=== PATIENT | male | born 1985 | race American Indian/Alaskan Native ===

== ENCOUNTER 2017-05-15 18:49 | Emergency (ER) | payer OTHER ==
[2017-05-15] MEDS ORDERED: NORCO 5/325 PO ONE (19:01)
[2017-05-15] MEDS ORDERED: BOOSTRIX IM ONE (19:02)
[2017-05-15 19:05] VITALS: BP 126/94
[2017-05-15] MEDS ORDERED: MOTRIN ONE (19:21)
[2017-05-15] MEDS ORDERED: MOTRIN PO ONE (19:24)
--- NOTE | 2017-05-15 19:36 | XRay Report ---
FINAL REPORT EXAM: XR FINGER(S) 2+V RT HISTORY: distal index finger fracture TECHNIQUE: AP, lateral, and oblique views of the right 4th finger PRIORS: None. FINDINGS: There is an acute fracture involving the distal tuft of the 4th finger. Overlying bandaging somewhat obscures visualization of soft tissues. There is no evidence for dislocation. No soft tissue swelling or radiopaque foreign bodies are seen. Bony mineralization is normal and joint spaces are maintained. IMPRESSION: Acute fracture involving the distal tuft of the 4th finger.
--- NOTE | 2017-05-15 20:34 | Emergency Department Report ---
ED Upper Extremity Inj HPI - General Chief Complaint: Extremity Injury, Upper Stated Complaint: FINGER LAC Time Seen by Provider: 05/15/17 19:28 Source: patient Mode of arrival: Ambulatory Limitations: No Limitations - History of Present Illness Initial Comments: This is a 31-year-old male nontoxic, well nourished in appearance, no acute signs of distress that presents to the ED complaining of right fourth finger pain and laceration. Patient stated he was moving a heavy object at work and landed on his right index and fourth finger that occurred around 6 PM today. Patient denies any numbness, tingling, decreased range of motion, fever, chills , shortness of breath, chest pain, nausea or vomiting. Patient discussed pain as throbbing with level of 8 out of 10. Patient denies having tetanus update. Denies any drug allergies. Past medical history MS and hypersomnia. Patient is currently occupied with coworker. Coworker stated he will junk the patient home at the time of discharge. MD Complaint: Injury to:: finger (right fourth) -: Gradual, This evening Other Extremity Injury: Fingers: Right Other Injuries: none Handedness: right Place: work Severity scale (0 -10): 8 Improves With: none Worsens With: none Context: injury Associated Symptoms: denies other symptoms. denies: weakness, numbness, neck pain, suspects foreign body, nausea/vomiting, heard/felt popping sensat - Related Data Previous Rx's Medication Instructions Recorded Last Taken Type Cephalexin [Keflex] 500 mg PO Q8HR 5 Days 05/15/17 Unknown Rx HYDROcodone/APAP 7.5-325 [[place] 1 each PO Q8HR PRN #12 tablet 05/15/17 Unknown Rx 7.5/325] Ibuprofen [Motrin 600 MG tab] 600 mg PO Q8H PRN #20 tablet 05/15/17 Unknown Rx Allergies Allergy/AdvReac Type Severity Reaction Status Date / Time No Known Allergies Allergy Unverified 05/15/17 19:00 ED Review of Systems ROS: Stated complaint: FINGER LAC Other details as noted in HPI Constitutional: denies: chills, fever Eyes: denies: eye pain, eye discharge, vision change ENT: denies: ear pain, throat pain Respiratory: denies: cough, shortness of breath, wheezing Cardiovascular: denies: chest pain, palpitations Endocrine: no symptoms reported Gastrointestinal: denies: abdominal pain, nausea, diarrhea Genitourinary: denies: urgency, dysuria Musculoskeletal: denies: back pain, joint swelling, arthralgia Skin: denies: rash, lesions Neurological: denies: headache, weakness, paresthesias Psychiatric: denies: anxiety, depression Hematological/Lymphatic: denies: easy bleeding, easy bruising ED Past Medical Hx - Past Medical History Previous Medical History?: Yes Additional medical history: MS, Hypersomnia - Surgical History Past Surgical History?: Yes Hx Cholecystectomy: Yes - Social History Smoking Status: Never Smoker Substance Use Type: Non Opiate Pain, Prescribed - Medications Home Medications: Home Medications Medication Instructions Recorded Confirmed Last Taken Type Cephalexin [Keflex] 500 mg PO Q8HR 5 Days 05/15/17 Unknown Rx HYDROcodone/APAP 7.5-325 [[place] 1 each PO Q8HR PRN #12 tablet 05/15/17 Unknown Rx 7.5/325] Ibuprofen [Motrin 600 MG tab] 600 mg PO Q8H PRN #20 tablet 05/15/17 Unknown Rx ED Physical Exam - General Limitations: No Limitations General appearance: alert, in no apparent distress - Head Head exam: Present: atraumatic, normocephalic, normal inspection - Eye Eye exam: Present: normal appearance, PERRL, EOMI. Absent: scleral icterus, conjunctival injection, nystagmus, periorbital swelling, periorbital tenderness Pupils: Present: normal accommodation - ENT ENT exam: Present: normal exam, normal orophraynx, mucous membranes moist, TM's normal bilaterally, normal external ear exam - Neck Neck exam: Present: normal inspection, full ROM. Absent: tenderness, meningismus, lymphadenopathy, thyromegaly - Respiratory Respiratory exam: Present: normal lung sounds bilaterally. Absent: respiratory distress, wheezes, rales, rhonchi, stridor, chest wall tenderness, accessory muscle use, decreased breath sounds, prolonged expiratory - Cardiovascular Cardiovascular Exam: Present: regular rate, normal rhythm, normal heart sounds. Absent: bradycardia, tachycardia, irregular rhythm, systolic murmur, diastolic murmur, rubs, gallop - GI/Abdominal GI/Abdominal exam: Present: soft, normal bowel sounds. Absent: distended, tenderness, guarding, rebound, rigid, diminished bowel sounds - Rectal Rectal exam: Present: deferred - Extremities Exam Extremities exam: Present: normal inspection, full ROM, normal capillary refill. Absent: tenderness, pedal edema, joint swelling, calf tenderness - Expanded Upper Extremity Exam Right General: Present: normal inspection, laceration Shoulder Exam: Present: normal inspection, full ROM. Absent: tenderness, swelling, abrasion, laceration, ecchymosis, deformity, crepidus, dislocation, erythema, tenderness over AC joint Upper Arm exam: Present: normal inspection, full ROM. Absent: tenderness, swelling, abrasion, laceration, ecchymosis, deformity, crepidus, dislocation, erythema Elbow exam: Present: normal inspection, full ROM. Absent: tenderness, swelling , abrasion, laceration, ecchymosis, deformity, crepidus, dislocation, erythema, effusion, pain w/ pronation/supination, tenderness over radial head Forearm Wrist exam: Present: normal inspection, full ROM. Absent: tenderness, swelling, abrasion, laceration, ecchymosis, deformity, crepidus, dislocation, erythema, tenderness over anatomical snuff box, pain with axial thumb loading Hand Wrist exam: Present: normal inspection, full ROM, tenderness (fourth finger ), laceration (1 cm laceration to right distal fourth finger), other (Vascular stable fourth finger with normal ROM and cap refill.). Absent: swelling, abrasion, ecchymosis, deformity, crepidus, dislocation, erythema, amputation, nail avulsion, subungual hematoma Hand L/R Front: 1 - Positive: laceration Neuro motor exam: Present: wrist extension intact, thumb opposition intact, thumb IP flexion intact, thumb adduction intact, fingers 2-5 abduction intact Neurosensory exam: Present: 2-point discrimination, radial nerve intact, ulnar nerve intact, median nerve intact Vascular: Present: vascular compromise, normal capillary refill, radial pulse, brachial pulse, ulnar pulse - Back Exam Back exam: Present: normal inspection, full ROM. Absent: tenderness, CVA tenderness (L), muscle spasm, paraspinal tenderness, vertebral tenderness, rash noted - Neurological Exam Neurological exam: Present: alert, oriented X3, CN II-XII intact, normal gait, reflexes normal. Absent: abnormal gait - Psychiatric Psychiatric exam: Present: normal affect, normal mood - Skin Skin exam: Present: warm, dry, intact, normal color. Absent: rash - Other Other exam information: Right fourth finger vascular intact. normal ROM. Negative snuff box tenderness. Normal cap refill. ED Course Vital Signs 05/15/17 19:00 Temperature 98.4 F Pulse Rate 102 H Respiratory 18 Rate Blood Pressure 126/94 O2 Sat by Pulse 96 Oximetry - Reevaluation(s) Reevaluation #1: 05/15/17 20:38 Patient is able to speak in full sentences with no signs of distress. Patient coworker is present and stated will drive the patient home. - Laceration /Wound Repair Right Distal Finger Wound Location: upper extremity (right distal fourth finger) Wound Length (cm): 1 Wound's Depth, Shape: superficial Wound Explored: clean Betadine Prep?: Yes Wound Debrided: minimal Wound Repaired With: Dermabond Sterile Dressing Applied?: Yes Progress: Under sterile field, I used Betadine to clean the area. I then used 40 mL of normal saline to flush the area. I then used Dermabond. I then applied a sterile 4 x 4 with tape. No bleeding noted. Patient tolerated procedure well with no signs of distress. ED Medical Decision Making - Medical Decision Making ED course; this is a 31-year-old male that presents with a acute fracture of the distal tuft of the fourth finger and laceration 1- patient was examined by self. Patient received a x-ray of right hand which indicates a acute fracture involving the distal tuft of the fourth finger. They dictated by Dr. Peres. Patient is notified of x-ray findings. Patient received a finger splint to the fourth finger was instructed to follow-up with Dr. Bonner or another orthopedic doctor in 3-5 days or symptoms such as numbness , tingling, joint swelling, joint pain, joint redness, fever or chills return to the ER as soon as possible. Laceration has been repaired with dermabond. Patient was instructed to keep area dry and clean for x7 days. Patient received tetanus in the ED. Patient also received [place] at time of discharge. Patient was instructed not to operate any machinery after discharge due to sedation/ drowsiness of medical treatment in the ED. His coworkers that he'll get the patient home at discharge. Patient received Keflex at discharge. Critical care attestation.: If time is entered above; I have spent that time in minutes in the direct care of this critically ill patient, excluding procedure time. ED Disposition Clinical Impression: Laceration Contusion Qualifiers: Encounter type: initial encounter Contusion area: finger Finger: ring finger Damage to nail status: without damage Laterality: right Qualified Code(s): S60.041A - Contusion of right ring finger without damage to nail, initial encounter Finger fracture, right Qualifiers: Encounter type: initial encounter Finger: ring finger Fracture type: closed Phalanx: distal Fracture alignment: nondisplaced Qualified Code(s): S62.664A - Nondisplaced fracture of distal phalanx of right ring finger, initial encounter for closed fracture Disposition: TO HOME OR SELFCARE Is pt being admited?: No Does the pt Need Aspirin: No Condition: Stable Instructions: Cephalexin (By mouth), Acetaminophen/Codeine (By mouth), Suture Care (ED), Laceration (ED), Finger Fracture (ED), Splint Care (ED), RICE Therapy (ED) Additional Instructions: Return in 7 days to the ED for suture removal. follow-up with Dr. Bonner or another orthopedic doctor in 3-5 days or symptoms such as numbness, tingling, joint swelling, joint pain, joint redness, fever or chills return to the ER as soon as possible. Take [place] as prescribed for pain as needed and Keflex. Do not operate any machinery while taking [place] due to sedation/drowsiness. Prescriptions: Cephalexin [Keflex] 500 mg PO Q8HR 5 Days HYDROcodone/APAP 7.5-325 [[place] 7.5/325] 1 each PO Q8HR PRN #12 tablet PRN Reason: Pain Ibuprofen [Motrin 600 MG tab] 600 mg PO Q8H PRN #20 tablet PRN Reason: Pain Referrals: FELECIA MORTENSEN MD [Primary Care Provider] - 3-5 Days MERLINE BONNER MD [Staff Physician] - 3-5 Days [facility] [Outside] - 3-5 Days [facility] [place] [Outside] - 3-5 Days EV HERMOSILLO MD [Staff Physician] - 3-5 Days Forms: Work/School Release Form(ED)
[2017-05-15] MEDS ORDERED: MARCAINE 0.5% INFILTRATI ONE (20:45)
== END 2017-05-15 23:40 | disposition home or self-care (01) ==
LOC: ED 18:49
DX: S62.664A Nondisplaced fracture of distal phalanx of right ring finger, initial encounter for closed fracture (principal); S61.214A Laceration without foreign body of right ring finger without damage to nail, initial encounter; S60.041A Contusion of right ring finger without damage to nail, initial encounter; W22.8XXA Striking against or struck by other objects, initial encounter; Y93.89 Activity, other specified; Y99.9 Unspecified external cause status; Y92.89 Other specified places as the place of occurrence of the external cause
CPT/HCPCS: 90471; 90715